=== PATIENT | male | born 1965 | race Caucasian/White ===

== ENCOUNTER 2021-07-25 08:37 | Emergency (ER) | payer SELFPAY ==
[~2021-07-25] VITALS: Ht 175.3 cm; Wt 79.4 kg
--- NOTE | 2021-07-25 08:40 | NUR ---
AAOX3, BIBRA [facility] from [facility] for ETOH intoxication, no obvious trauma noted. Skin is warm and dry. Resp even and unlabored with no apparent distress noted. Placed on the monitor and NC at 2L/min. ER at [facility] for eval.
[2021-07-25] MEDS ORDERED: IV NS 0.9% 1,000 ML BAG IV ONE (09:00)
[2021-07-25 09:44] LABS: ALBUMIN 3.6 g/dL (3.4-5.0); BILIRUBIN,DIRECT 0.2 mg/dL (0.0-0.2); BILIRUBIN,TOTAL 0.6 mg/dL (0.2-1.0); CALCIUM, SERUM 8.6 mg/dL (8.5-10.1); POTASSIUM 3.1 mmol/L (3.5-5.1); TOTAL PROTEIN, SERUM 7.2 g/dL (6.4-8.2)
[2021-07-25 09:46] LABS: BASOPHILS # (AUTO) 0.1 K/uL (0.0-0.2); BASOPHILS % (AUTO) 0.8 % (0.0-2.0); EOSINOPHILS % (AUTO) 1.2 % (0.0-6.0); HEMATOCRIT 43 % (39-51); LYMPHOCYTES # (AUTO) 1.3 K/uL (0.8-4.8); LYMPHOCYTES % (AUTO) 15.7 % (20.0-44.0); MEAN CORPUSCULAR HGB CONC 32 g/dl (31.0-36.0); MEAN CORPUSCULAR VOLUME 88 fL (80-96); MONOCYTES # (AUTO) 0.6 K/uL (0.1-1.30); MONOCYTES % (AUTO) 6.8 % (2.0-12.0); NEUTROPHILS # (AUTO) 6.2 K/uL (1.8-8.9); NEUTROPHILS % (AUTO) 75.5 % (43.0-81.0); PLATELET COUNT (AUTO) 210 K/uL (150-450); RED BLOOD CELL COUNT(AUTO) 4.92 MIL/uL (4.5-6.0); WHITE BLOOD COUNT (AUTO) 8.2 K/uL (4.3-11.0)
--- NOTE | 2021-07-25 13:00 | NUR ---
THE PATIENT IS ALERT AND ORIENTED X4. DENIES PAIN. IN ROOM AIR AND DENIES SOB. RESPIRATION REGULAR AND UNLABORED.
--- NOTE | 2021-07-25 13:11 | NUR ---
SS Consult: SS consult completed & written by ROSALVA, Lauryn Topete SS consult requested for ETOH. Pt. is a 55-year-old male who was admitted to the hospital by ambulance. During assessment, pt. is in bed sleeping. Once awake, pt. is oriented x3, alert, and cooperative. Pt. reported Hx of substance abuse (alcohol), and depression at times, but can manage. Pt. denies SI/HI, and hallucinations. Pt. has been living with two friends [[address] Pt. demonstrate adequate insight to the reason for hospitalization. Pt. stated that he was not feeling well at [facility], and the employees called the ambulance. Pt. mentioned that his support system are his friends and his dad [[phone]] who currently lives in [place]. Pt. is independent with his ADLs and he is ambulatory. ROSALVA explored pt.s financial situation. Pt. is financially stable. DC Plan: Per pt. he will be taking the bus home [[address] ROSALVA provided Substance Abuse resources and pt. accepted. Resources Provided: Behavioral Health and Substance Abuse Referrals and Clinics for Screening [facility] [address] [place] [address] Not a intermediate, do not send patients there for shelters. Homeless resources. Appointment is needed. [phone] Services include comprehensive field-based mental health services, with case management and medication support services. Laundry, shower and locker facilities are available. APPLICATION PROCEDURE Call the central intake number for information about all programs provided by the agency and to schedule appointments. Homeless mentally ill people may be seen at [facility] on a walk-in basis. [facility] (Behavioral Health) [address] [facility], 2nd [place] [address] Main Number: [facility] ([facility]): Contact Alka Castillo [facility] [address] [place] [address] Walk-in for psychiatric consultation HOURS: Mon-Fri 8am--7pm Saturdays 9am--5:30pm Closed on Sundays Clinic stated that walk-ins are welcome, but there will be a long wait. No appointments. Services: mental health services, medications, community artist for resource linkage. [facility] (Behavioral Health) [facility] Walk-in during certain hours [place], [place] [address] Operation Hours: WED - WED 8:00 a.m. - 5:00 p.m. Walk In Hours: WED - WED 8:00 a.m. - 5:00 p.m. Services by Age: Adults and Older Adults Mental Health Services: Field Capable Clinical Services (FCCS) Medication Support Mental Health Services Peer Support NOTE: ACCESS Center 19/04 helpline: Adolescent and Childrens Psychiatric Treatment [facility] Services Crisis stabilization, medication support mental health services [address] [facility] [id number] Appointment needed Counseling [facility] Family [facility]ing Appointment needed [address] [facility] [id number] Counseling [facility] [address] [facility] [phone] Healthcare Clin[facility] [address], Vaccines and infectious disease resource [address] [place]. [place] Hours: M, T, Th, F 8:30AM-4:30PM Walk-ins allowed Provide medical screening and pharmacy [facility] [address] [facility] [address] [place] [address] Vaccines and infectious diseases Hours M-F 8AM-3:30PM Walk-ins allowed Provide medical screening and pharmacy [facility] [address] [facility]. [place] [address] Hours 8AM-4:30PM Walk-ins allowed Provide medical screening and pharmacy Alcohol and Drug Treatment Programs [facility] Substance Abuse Self-helpline ([facility]) Substance Abuse Contact number . Call the hotline and the chenille machine operator will screen and link individual to an appropriate program. Must have Medi-kena or be Medi-kena eligible. [facility] [address] [facility]. [place] [id number] [facility] [address] [place] [address] Appointment needed Intake at 8.00 am but this does not mean acceptance [facility] Program (Taoism based) [address] [place] [address] (Six months program and need to work for 8 hrs per day while in treatment) [facility] (No insurance required) [address] [place] [address] [facility] [address] [facility] [address] Closed on Wednesday Open Wednesday through Wednesday 9 am -6 pm Wednesday 10am 5 pm Closed on Wednesday [facility] [phone] [place] [phone] Prefer phone calls. They do allow walk-ins but prefer appointments
--- NOTE | 2021-07-25 13:11 | NUR ---
IV removed. Catheter intact and site benign. Pressure and 4x4 applied to site. No bleeding noted.Patient discharged to home in stable condition. Written and verbal after care instructions given. Patient verbalizes understanding of instruction.
[2021-07-25 13:15] VITALS: BP 126/75
== END 2021-07-25 13:15 | disposition home or self-care (01) ==
LOC: ER 09:28
DX: R42 Dizziness and giddiness (principal); F10.10 Alcohol abuse, uncomplicated; R94.31 Abnormal electrocardiogram [ECG] [EKG]; Z59.01 Sheltered homelessness
CPT/HCPCS: 36415; 71045; 80048; 80076; 85025; 93005; 96360; 99285; J7030

== ENCOUNTER 2021-08-27 02:42 | Emergency (ER) | payer OTHER ==
[~2021-08-27] VITALS: Ht 177.8 cm; Wt 81.6 kg
[2021-08-27 02:56] VITALS: BP 127/73
[2021-08-27] MEDS ORDERED: IBUP-1957 PO (03:03)
[2021-08-27] MEDS ORDERED: CLIN300C12 PO (03:03)
--- NOTE | 2021-08-27 03:07 | NUR ---
PT IS MEDICALLY CLEARED FOR BOOKING UNDER THE CARE OF [employer] OFFICERS IN STABLE CONDIOTION. PT IS AMBULATORY ON STEADY GAIT AND LEFT ON HAND CUFFS ESCORTED BY [employer] OFFICERS. PRESCRIPTION AND INSTRUCTIONS GIVEN TO PT AND OFFICERS.
== END 2021-08-27 03:11 | disposition home or self-care (01) ==
LOC: ER 02:47
DX: M25.472 Effusion, left ankle (principal); L03.116 Cellulitis of left lower limb

== ENCOUNTER 2024-02-27 12:14 | Emergency (ER) | payer SELFPAY ==
[~2024-02-27] VITALS: Ht 193 cm; Wt 99.8 kg
[~2024-02-27 12:14] MED LIST: CLIN300C12 PO; IBUP-1957 PO
[2024-02-27 13:47] VITALS: BP 131/64; TEMP 98.7; O2SAT 97
== END 2024-02-27 13:48 | disposition home or self-care (01) ==
LOC: ER 12:18
DX: M79.89 Other specified soft tissue disorders (principal); Z79.899 Other long term (current) drug therapy
CPT/HCPCS: 93971-TC